=== PATIENT | male | born 1960 | race Caucasian/White ===

== ENCOUNTER → 2017-03-15 10:39 | Outpatient (CLI) | payer OTHER, SELFPAY ==
[2017-03-15 11:10] LABS: Blood Urea Nitrogen 18 mg/dL (7-18); Creatinine,Serum 1.02 mg/dL (0.70-1.30); Estimated Glomerular Filt Rate 75 ml/min (>60); GFR (African American) 91 ML/MIN (>60)
--- NOTE | 2017-03-15 11:10 | CT_ITS ---
CT abdomen wo/w con CLINICAL INDICATION: Left renal mass ITS.REASON: LT RENAL MASS ORDERING PHYSICIAN: Toi Rees MD PATIENT AGE: 56 years COMPARISON: 01/31/2017 TECHNIQUE: Axial images obtained without and with contrast with sagittal and coronal reformats. PROCEDURE: Oral Contrast: None IV Contrast: 75 mL is Isovue-370. FINDINGS: There are punctate bilateral renal calculi in the upper and lower pole on the right measuring 2 to 3 mm and in the upper and lower pole on the left 4 mm in the upper pole. No ureteral calculi evident. No hydronephrosis. There is a 2.9 x 2.6 x 2.7 cm exophytic mass projecting off of the lateral aspect of the left kidney along the lower pole. More dense than what one would expect for simple cyst on the unenhanced images measuring 30 Hounsfield units. The density is near 30 Hounsfield units on the immediate post enhanced and delayed images. There is a small focus of calcification within the wall of this lesion inferiorly and posteriorly. May very well represent a solid lesion however, ultrasound is recommended to determine cystic or solid nature. The pancreas, adrenal glands, gallbladder, have an unremarkable appearance There is once again noted a large right inguinal hernia containing small bowel without evidence of obstruction. IMPRESSION: 1. 3 cm exophytic mass projects off the lower pole of left kidney. This is more dense somewhat one would expect for simple cyst and could be due to hyperdense cyst or solid mass. There is some calcification along the wall anteriorly. Recommend ultrasound to better classify as cystic or solid. 2. Bilateral nephrolithiasis
--- NOTE | 2017-03-15 12:11 | HMH.ITSHM ---
LISINOPRIL, OMEPRAZOLE,
== END ==
PROVIDERS: Family Provider Family Medicine; PCP Family Medicine; Visit Provider Urology
DX: N28.89 Other specified disorders of kidney and ureter (principal)
CPT/HCPCS: 36415; 74170; 80053; 81001; 82565; 84520; 85025; 93005; Q9967

== ENCOUNTER → 2017-03-22 09:34 | Outpatient (CLI) | payer OTHER, SELFPAY ==
[2017-03-22 09:48] LABS: Microscopic, Urine URINE MICROSCOPIC (MICROSCOPIC)
[2017-03-22 11:29] LABS: Basophils # 0.1 K/mm3 (0-0.2); Basophils % 1.5 % (0.1-2.0); Eosinophils # 0.6 K/mm3 (0.0-0.4); Hematocrit 46.8 % (42.0-52.0); Hemoglobin 15.6 g/dL (14.1-18.0); Lymphocytes # 1.5 K/mm3 (0.7-4.5); Lymphocytes % 21.5 K/mm3 (10-50); Mean Corpuscular HGB Conc 33.3 g/dL (31.8-35.4); Mean Corpuscular Hemoglobin 31.2 pg (27.0-31.2); Mean Corpuscular Volume 93.7 fl (80-94); Mean Platelet Volume 7.7 fl (7.4-10.4); Monocytes # 0.7 K/mm3 (0.1-1.0); Monocytes % 9.3 % (1.7-9.3); Neutrophils # 4.1 K/mm3 (1.8-7.8); Neutrophils % 58.8 % (37.0-80.0); Platelet Count 309 K/mm3 (142-424); Red Cell Distribution Width 11.8 % (11.5-17.5)
[2017-03-22 12:07] LABS: Appearance,Urine Clear (Clear); Color,Urine Yellow (Yellow)
[2017-03-22 12:08] LABS: Bilirubin,Urine Negative (Negative); Blood, Urine Trace (Negative); Glucose,Urine (UA) Negative (Negative); Ketones,Urine Negative (Negative); Leukocyte Esterase,Urine Negative (Negative); Nitrate,Urine Negative (Negative); PH,Urine 6.5 (5.0-8.5); Protein,Urine Negative (Negative); Urobilinogen,Urine 0.2 EU/dl (0.2)
[2017-03-22 12:14] LABS: Bacteria,Urine Trace /lpf; RBC,Urine Occasional #/hpf (0-3)
[2017-03-22 12:43] LABS: Alanine Aminotransferase 17 U/L (12-78); Albumin Level 4.3 gm/dL (3.4-5.0); Albumin/Globulin Ratio 1.4 (1.1-1.8); Alkaline Phosphatase 79 U/L (46-116); Anion Gap 14.6 mEq/L (5-15); Aspartate Amino Transferase 23 U/L (15-37); Bilirubin,Total 0.9 mg/dL (0.2-1.0); Blood Urea Nitrogen 17 mg/dL (7-18); Calcium 9.3 mg/dL (8.5-10.1); Carbon Dioxide 26 mmol/L (21.0-32.0); Chloride 101 mmol/L (98-107); Creatinine,Serum 0.92 mg/dL (0.70-1.30); Estimated Glomerular Filt Rate 85 ml/min (>60); GFR (African American) 103 ML/MIN (>60); Glucose 159 mg/dL (74-106); Potassium 4.6 mmoL/L (3.5-5.1); Sodium 137 mmol/L (136-145); Total Protein,Serum 7.3 gm/dL (6.4-8.2)
== END ==
PROVIDERS: PCP Family Medicine; Visit Provider Surgery
DX: K40.90 Unilateral inguinal hernia, without obstruction or gangrene, not specified as recurrent (principal); Z01.818 Encounter for other preprocedural examination
CPT/HCPCS: 36415; 80053; 81001; 85025

== ENCOUNTER → 2017-03-22 09:54 | Outpatient (CLI) | payer OTHER, SELFPAY | PROVIDERS: PCP Family Medicine; Visit Provider Surgery | DX: K40.90 Unilateral inguinal hernia, without obstruction or gangrene, not specified as recurrent (principal); Z01.818 Encounter for other preprocedural examination ==

== ENCOUNTER 2017-03-25 06:01 | Day surgery (SDC) | payer OTHER, SELFPAY ==
[2017-03-24 08:52] VITALS: BMI 25.9
[2017-03-25] VITALS (12 sets, daily range): BP systolic 110–146; BP diastolic 58–80; PULSE 55–69; RESP 16–20; TEMP 36.2–43; O2SAT 94–97
--- NOTE | 2017-03-25 07:08 | P.PN_ITS ---
[facility] Anesthesia Checklist - Patient Identification Patient Identification: Arm Band - Structural Data Admitted From: Home Planned Operative Procedure/s: right open inguinal hernia repair Consent for Planned Operative Procedure(s) Verified: Yes Verified Documents: Surgical Consent, History and Physical - NPO Status Verified Time NPO: 00:00 - Additional verifications Anesthesia Reactions: No - Airway Assessment C-Spine Mobility Assessed: Yes (MP2) TMJ Mobility Assessed: Yes Dentition: Good Dentition - Neurological Assessment Level of Consciousness: Awake, Alert - Anesthesia Plan Anesthesia Risk discussed: Yes Anesthesia Plan: Verified ASA Class: II Anesthesia Type: General [facility] Anesthesia HX I have reviewed the patient's past medical history: Yes Medical History: Reports:: Gastroesophageal Reflux Disease(GERD), Hypertension, Valvular Heart Disease Denies:: Cancer, Diabetes Mellitus Type 1, Diabetes Mellitus Type 2, MRSA, Seizures Laterality Cases: Right: Other Amputation: No Fractures: Yes *Family Hx:: Asthma, Coronary Artery Disease, Diabetes, Heart Attack, Hypertension, Stroke
--- NOTE | 2017-03-25 07:59 | SUR.OPER ---
0802-FAMILY UPDATED AT THIS TIME PER NAPOLEONRN
--- NOTE | 2017-03-25 08:47 | HMH.OPNOTE ---
Date of procedure: 03/25/17 Pre-op Diagnosis:: Right inguinal hernia Post-op diagnosis:: same Procedure performed:: Open repair of right inguinal hernia Surgeon:: Tex Mccray MD Appliance Fixer(s):: Isidro Banerjee INDUSTRIAL GARAGE SERVICER:: Brian Mondragon Anesthesia: GETA Estimated blood loss (mL): 15 Operative findings:: Fusion of colon, hernia sac, and testicle Large complex indirect defect Operative note:: After informed consent was obtained, the patient was taken to the operating room and placed in the supine position. General anesthesia was induced and his abdomen and groin/scrotum were prepped and draped in a sterile fashion. After infiltration with local anesthetic an oblique incision was made in the right groin. The deep subcutaneous tissue was dissected through Alvin's fascia to the level of the external aponeurosis utilizing electrocautery. The external aponeurosis was opened to the level of the external ring utilizing Metzenbaum scissors. The contents of the canal were carefully elevated as it became apparent that the hernia sac, colon, and testicle were fused. The testicle was elevated with the contents of the canal. Careful dissection was utilized to free the hernia sac/colon from the testicle and the testicle was returned to the canal. External palpation confirmed the testicle to be within the scrotum. Interrupted Vicryl suture was utilized to pex the cord gently to the margin of the external ring. The colon and hernia sac were returned to the abdominal cavity and an extra large PreFix plug was secured in position utilizing interrupted Ethibond. The The Prefix mesh was then secured in position to the shelving edge inferiorly and fascial margin superiorly with interrupted Ethibond suture. The external aponeurosis was reapproximated utilizing running Vicryl suture. Alvin's fascia was reapproximated in the same manner and skin was closed with 4-0 Monocryl in a running subcuticular fashion. Dressings were applied. The patient's anesthetic agents were reversed and he was extubated prior to transfer to recovery. Pathology: none sent Condition: stable Disposition: PACU Complications:: no immediate
--- NOTE | 2017-03-25 09:02 | P.PN_ITS ---
[facility] Anesthesia Record Part I Intake, IV Amount: 900 Estimated blood loss (mL): 15 Urine output (mL): 150 Blood Products used (#): none Blood Pressure: 143/80 (96) SaO2: 96 Pulse Rate: 67 Respiratory Rate: 16 Temperature: 97.2 F Patient is:: Drowsy, Nasal O2, Stable Stable to PACU at:: 08:59
--- NOTE | 2017-03-25 09:03 | P.PN_ITS ---
[facility] Anesthesia Record Part II Discharge Time: 09:29 Destination: Surgical Day Care (OP Surgery) PACU nurse assessment reviewed?: Yes Patient Condition:: Good Anesthesia Complications:: None
[2017-03-25 09:20] LABS: Microscopic,Cath URINE MICROSCOPIC (MICROSCOPIC)
[2017-03-25 09:23] LABS: Appearance,Urine/Cath CLEAR (Clear); Bilirubin,Cath Negative (Negative); Blood, Urine/Cath TRACE-I (Negative); Color,Urine/Cath YELLOW (Yellow); Glucose,Urine/Cath (UA) Negative (Negative); Ketones,Urine/Cath Negative (Negative); Leukocyte Esterase,Cath Negative (Negative); Nitrate,Cath Negative (Negative); Protein,Urine/Cath Negative (Negative); Urobilinogen,Cath 0.2 EU/dl (0.2)
[2017-03-25 09:48] LABS: Bacteria,Urine/Cath 2+ /lpf; WBC,Urine/Cath Occasional #/hpf (0-3)
[2017-03-25 09:50] LABS: Squamous Epithelial Ur./Cath Occasional #/hpf (0-5)
--- NOTE | 2017-03-25 11:06 | PC.NURSE ---
[id number] CATHETER #16 FR COUDAE REMOVED AT THIS TIME
--- NOTE | 2017-03-25 11:40 | PC.NURSE ---
gave pt 2 norco 5/325mg for pain 10/14 . pt refused pain meds earlier and now when moving to get dressed pain increased and he asked for medication at this time. administered 2 tabs at 1035
== END 2017-03-25 10:45 | disposition home or self-care (01) ==
LOC: OR 06:03
PROVIDERS: Family Provider Family Medicine; PCP Family Medicine; Visit Provider Surgery
PROC: (CPT 49505; principal; 2017-03-25 07:30)
DX: K40.90 Unilateral inguinal hernia, without obstruction or gangrene, not specified as recurrent (principal)
CPT/HCPCS: 49505; 81001; 87086; 96374; J0131; J2710

== ENCOUNTER → 2017-11-30 10:02 | Outpatient (CLI) | payer OTHER, SELFPAY ==
--- NOTE | 2017-11-30 10:06 | XR_ITS ---
XR chest 2V HISTORY: ITS.REASON: URI , SMOKER ORDERING PHYSICIAN: Rosa Tellez PATIENT AGE: 57 years COMPARISON: None FINDINGS: The cardiomediastinal silhouette and pulmonary vascularity are within normal limits. The lungs are clear without infiltrates, suspicious nodules, or pleural effusions. No acute bony abnormalities. IMPRESSION: Negative chest, no acute finding
== END ==
PROVIDERS: PCP Family Medicine; Visit Provider Nurse Practitioner Family
DX: F17.210 Nicotine dependence, cigarettes, uncomplicated (principal); J06.9 Acute upper respiratory infection, unspecified
CPT/HCPCS: 71046